=== PATIENT | female | born 2000 | race African-American/Black ===

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

== ENCOUNTER 2021-05-04 15:04 | Emergency (ER) | payer SELFPAY ==
[2021-05-04 15:36] LABS: #Basophils 0.1 thou/uL (0.0-0.2); #Eosinphils 0.1 thou/uL (0.0-0.7); #Lymphocytes 2.2 thou/uL (1.20-3.40); #Monocytes 0.4 thou/uL (0.11-0.59); #Neutrophils 2.2 thou/uL (1.40-6.50); %Basophils 1.1 % (0.0-1.0); %Lymphocytes 43.7 % (21.0-51.0); %Monocytes 7.9 % (0.0-10.0); %Neutrophils 45.3 % (42.0-75.0); Hemoglobin 6.9 g/dL (12.0-16.0); Mean Corpuscular HGB CONC 29.1 g/dL (32.0-36.0); Mean Corpuscular Hemoglobin 19.2 pg (27.0-31.0); Mean Corpuscular Volume 65.8 fL (78.0-98.0); Platelet Count 333 thou/uL (130-400); RBC Distribution Width 16.8 % (11.5-14.5); Red Blood Cell (RBC) Count 3.62 mill/uL (4.20-5.40); White Blood Cell (WBC) Count 4.9 thou/uL (4.8-10.8)
[2021-05-04 15:41] LABS: BHCG - Serum Negative (NEGATIVE); Pregs Control Background? CLEAR/WHITE (CLR/WHITE); Pregs Control Bar Appear? YES (CONTROL BAR)
[2021-05-04 15:57] LABS: Anisocytosis SLIGHT = 6-15 cells (100X) (0-5/hpf); Hypochromia SLIGHT = 6-15 cells (100X) (0-5/hpf); MDiff Complete? YES; Microcytosis MODERATE=15-30 cells (100X) (0-5/hpf); Platelet Morphology Comment Appears Adequate; Polychromasia MODERATE = 3-4 cells (100X) (0-2/hpf); Schistocytes SLIGHT = 2-5 cells (100X) (0-1/hpf); Target Cells SLIGHT = 2-5 cells (100X) (0-1/hpf); Tear Drops SLIGHT = 2-5 cells (100X) (0-1/hpf)
[2021-05-06 19:53] LABS: Chlamydia by PCR Not Detected (NotDetected); GC by PCR Not Detected (NotDetected)
== END 2021-05-04 17:29 | disposition home or self-care (01) ==
LOC: ERS 15:04
DX: N93.9 Abnormal uterine and vaginal bleeding, unspecified (principal); D50.9 Iron deficiency anemia, unspecified
CPT/HCPCS: 36415; 76856; 84703; 85025; 87480; 87491; 87510; 87591; 87660

== ENCOUNTER 2021-07-10 16:42 | Emergency (ER) | payer OTHER ==
[2021-07-10] MEDS ORDERED: Acetaminophen 500 MG TAB ONE (18:25)
[2021-07-10] MEDS ORDERED: Ibuprofen 200 MG TAB ONE (18:40)
[2021-07-10 19:58] LABS: Bacteria/HPF 1+ HPF (None Seen); Bilirubin Negative (Negative); Blood, Urine Negative (Negative); Clarity Turbid (Clear); Glucose, Urine (Dipstick) Normal (Negative); Ketone, Urine Trace mg/dL (Negative); Leukocyte Negative Leu/uL (Negative); Nitrite Negative (Negative); Protein, Urine (Dipstick) 50 mg/dL (Neg-Trace); RBC/HPF 0-3 HPF (0-3); Urobilinogen 6 mg/dL (Less than 2)
[2021-07-10 19:59] LABS: Pregnancy Test - Urine (BHCG) Negative (Negative); Pregu Control Background? CLEAR/WHITE (CLR/WHITE); Pregu Control Bar Appear? YES (CONTROL BAR)
== END 2021-07-10 20:34 | disposition home or self-care (01) ==
LOC: ERS 16:42
DX: J00 Acute nasopharyngitis [common cold] (principal); G43.909 Migraine, unspecified, not intractable, without status migrainosus; D50.9 Iron deficiency anemia, unspecified
CPT/HCPCS: 81003; 81015; 81025; 99283

== ENCOUNTER 2024-10-18 15:16 | Emergency (ER) | payer SELFPAY | END 2024-10-18 20:15 | disposition left against medical advice (07) | LOC: ERS 15:16 | DX: I10 Essential (primary) hypertension (principal) | CPT/HCPCS: 93005 ==